=== PATIENT | female | born 1950 | race African-American/Black ===

== ENCOUNTER 2021-10-09 08:42 | Day surgery (SDCO) | payer MEDICARE ==
[~2021-10-09] VITALS: Ht 162.6 cm; Wt 97.7 kg
[~2021-10-09 08:42] MED LIST: CEFDINIR300 MG PO; ZOFRAN4 MG PO
[2021-10-09 09:25] LABS: BASOPHIL 0.3 % (0-2); EOSINOPHIL 0.4 % (0-7); HCT 45.3 % (37.0-47.0); HGB 14.9 g/dl (12.5-16.0); LYMPHOCYTE 25.1 % (15-48); MCH 27.3 pg (25.0-31.0); MCHC 32.9 g/dL (32.0-36.0); MCV 83.1 fL (78.0-100.0); MONOCYTE 6.8 % (0-12); NEUTROPHIL 67.1 % (41-80); NRBC 0; PLT 232 K/uL (150-400); RBC 5.45 M/uL (4.20-5.40); RDW 13.2 % (11.5-14.0); WBC 10.2 K/uL (4.0-10.5)
[2021-10-09 09:30] LABS: PROTHROMBIN TIME 12.6 SECONDS (11.8-13.4); PTT 26.4 SECONDS (24.4-34.7)
[2021-10-09 09:39] LABS: ALBUMIN 3.5 g/dL (3.4-5.0); BILIRUBIN - TOTAL 1.2 mg/dL (0.2-1.0); BUN/CREAT RATIO (CALC) 29.9 RATIO; CREATININE 0.87 mg/dL (0.51-0.95); MAGNESIUM 2.3 mg/dL (1.8-2.4); TOTAL PROTEIN 7.5 g/dL (6.4-8.2)
[2021-10-09] MEDS ORDERED: HCTZ25 MG PO (15:10)
[2021-10-09] MEDS ORDERED: BISOPROLOL FUMAR5 MG PO (15:11)
[2021-10-10 07:01] LABS: BASOPHIL 0.6 % (0-2); EOSINOPHIL 3.2 % (0-7); HCT 41.2 % (37.0-47.0); HGB 13.4 g/dl (12.5-16.0); LYMPHOCYTE 39.1 % (15-48); MCHC 32.5 g/dL (32.0-36.0); MCV 86.2 fL (78.0-100.0); MONOCYTE 8.8 % (0-12); MPV 9.6 fL (6.0-9.5); NRBC 0; PLT 194 K/uL (150-400); RBC 4.78 M/uL (4.20-5.40); RDW 13.5 % (11.5-14.0); WBC 6.5 K/uL (4.0-10.5)
[2021-10-10 07:10] LABS: BILIRUBIN - TOTAL 1.8 mg/dL (0.2-1.0); BUN/CREAT RATIO (CALC) 14.5 RATIO; CREATININE 1.1 mg/dL (0.51-0.95); GLOBULIN (CALCULATION) 3.6 g/dL; MAGNESIUM 2.4 mg/dL (1.8-2.4); POTASSIUM 3.7 mmol/L (3.5-5.1); TOTAL PROTEIN 6.6 g/dL (6.4-8.2)
[2021-10-11 06:57] LABS: BASOPHIL 0.3 % (0-2); EOSINOPHIL 0.1 % (0-7); HCT 43.3 % (37.0-47.0); HGB 13.9 g/dl (12.5-16.0); LYMPHOCYTE 20.6 % (15-48); MCH 27.9 pg (25.0-31.0); MCHC 32.1 g/dL (32.0-36.0); MCV 86.8 fL (78.0-100.0); MONOCYTE 5.4 % (0-12); MPV 9.7 fL (6.0-9.5); NEUTROPHIL 73.2 % (41-80); NRBC 0; PLT 207 K/uL (150-400); RBC 4.99 M/uL (4.20-5.40); RDW 13.2 % (11.5-14.0); WBC 10.1 K/uL (4.0-10.5)
[2021-10-11 08:04] LABS: BILIRUBIN - TOTAL 0.8 mg/dL (0.2-1.0); BUN/CREAT RATIO (CALC) 13.4 RATIO; CREATININE 0.97 mg/dL (0.51-0.95); GLOBULIN (CALCULATION) 3.6 g/dL; POTASSIUM 3.9 mmol/L (3.5-5.1); TOTAL PROTEIN 6.6 g/dL (6.4-8.2)
[2021-10-11 14:47] LABS: BILIRUBIN - DIRECT 0.2 mg/dL (0.00-0.20); BILIRUBIN - TOTAL 0.6 mg/dL (0.2-1.0); GLOBULIN (CALCULATION) 3.7 g/dL; TOTAL PROTEIN 6.7 g/dL (6.4-8.2)
== END 2021-10-11 16:34 | disposition home or self-care (01) ==
LOC: FER 08:42 → FMS 11:26
PROVIDERS: Emergency Medicine; Student in an Organized Health Care Education/Training Program; ADMIT Internal Medicine
DX: K80.66 Calculus of gallbladder and bile duct with acute and chronic cholecystitis without obstruction (principal)
CPT/HCPCS: 36415; 71045; 74300; 76705; 80053; 80076; 83690; 83735; 83880; 84484; 85025; 85610; 85730; 87040; 93005; C1758; C9113; G0378; J1100; J1170; J1610; J1644; J2060; J2250; J2405; J2543; J2704; J3010; J7030; J7120; Q9967; U0002